=== PATIENT | male | born 1955 | race Hispanic/Latino ===

== ENCOUNTER 2018-09-11 09:10 | Day surgery (SDC) | payer MEDICARE ==
[~2018-09-11] VITALS: Ht 165.1 cm; Wt 58.5 kg
[~2018-09-11 09:10] MED LIST: ASPI-555 PO; ATOR40TA71 PO; CLOP75TA32 PO; HYDR100T27 PO; LISI1TAB11 PO; MULT-1259 PO; SODIUM CHLORIDE 0.9% 1000ML 1,000 ML IV ONE
[2018-09-11 09:52] VITALS: BP 142/66
[2018-09-11] MEDS ORDERED: PROPOFOL 10 MG/ML 20ML VIAL IV ONE (10:33)
[2018-09-11 10:58] VITALS: BP 91/34
[2018-09-11 11:22] VITALS: BP 118/49
[2018-09-11 11:31] VITALS: BP 116/32
[2018-09-11 11:33] VITALS: BP 126/62
== END 2018-09-11 11:38 | disposition home or self-care (01) ==
LOC: ENDO 09:10 → DAH 09:10 → ENDO 11:38
PROVIDERS: ATTEND Internal Medicine Gastroenterology
DX: Z12.11 Encounter for screening for malignant neoplasm of colon (principal); K56.2 Volvulus; K29.50 Unspecified chronic gastritis without bleeding; D64.9 Anemia, unspecified; I73.9 Peripheral vascular disease, unspecified; E78.5 Hyperlipidemia, unspecified; I10 Essential (primary) hypertension; F41.9 Anxiety disorder, unspecified; F32.9 Major depressive disorder, single episode, unspecified; Z79.899 Other long term (current) drug therapy; Z98.890 Other specified postprocedural states; Z95.1 Presence of aortocoronary bypass graft; Z89.429 Acquired absence of other toe(s), unspecified side; Z79.82 Long term (current) use of aspirin
CPT/HCPCS: 43239; 88305; 88342; 93005; A4606; G0121; J2704; J7030; 45378